=== PATIENT | male | born 1935 | race Caucasian/White ===

== ENCOUNTER 2020-03-19 11:42 | Emergency (ER) | payer MEDICARE ==
[~2020-03-19] VITALS: Ht 167.6 cm; Wt 72.7 kg
[~2020-03-19 11:42] MED LIST: ALLEGRA60 M1 PO; ALTACE2.5 M1 PO; CENTRUM1 TAB PO; CLOPIDOGREL PO; DRISTAN 12-HOUR15 ML NAS; FISH OIL500 MG PO; KEPPRA XR500 MG PO; MIRTAZAPINE7.5 MG PO; MUCINEX 60600 MG/TA1 PO; NAPROXEN220 MG PO; NITROQUICK0.4 MG SL; PLAVIX 75MG TAB75 MG PO; PREPARATION H30 GM RC; REMERON15 MG PO; TOLNAFTATE; TRANSDERM-0.5 MG/21 TD; TRIAMCINOLONE A15 G3 TP; UNABLE; ZANTAC 7575 MG PO; ZANTAC150 MG PO; ZOCOR10 MG PO
[2020-03-19 11:47] VITALS: TEMP 98.1
[2020-03-19] MEDS ORDERED: CEPHALEXIN500 M1 PO (12:08)
[2020-03-19 12:43] VITALS: BP 160/89; PULSE 73
== END 2020-03-19 13:05 | disposition home or self-care (01) ==
LOC: COL.ER 11:42
DX: R04.0 Epistaxis (principal); Z88.8 Allergy status to other drugs, medicaments and biological substances

== ENCOUNTER 2020-05-10 07:50 | Emergency (ER) | payer MEDICARE ==
[~2020-05-10] VITALS: Ht 167.6 cm; Wt 75.0 kg
[~2020-05-10 07:50] MED LIST changes: +CEPHALEXIN500 M1 PO
[2020-05-10 08:06] VITALS: BP 171/97; TEMP 98.9
[2020-05-10] MEDS ORDERED: CEPHALEXIN500 M1 PO (08:19)
[2020-05-10 10:35] VITALS: PULSE 74
== END 2020-05-10 08:53 | disposition home or self-care (01) ==
LOC: COL.ER 07:50
DX: R04.0 Epistaxis (principal); I25.10 Atherosclerotic heart disease of native coronary artery without angina pectoris; R56.9 Unspecified convulsions; Z79.82 Long term (current) use of aspirin; Z79.02 Long term (current) use of antithrombotics/antiplatelets

== ENCOUNTER → 2020-05-17 | Outpatient (CLI) | payer MEDICARE, BC | LOC: COL.CARD 11:20 | DX: Z01.818 Encounter for other preprocedural examination (principal); R04.0 Epistaxis; J34.2 Deviated nasal septum ==

== ENCOUNTER 2022-11-05 19:32 | Emergency (ER) | payer MEDICARE, BC ==
[~2022-11-05] VITALS: Ht 167.6 cm; Wt 72.7 kg
[2022-11-05 20:19] LABS: BASO % 0.3 % (0.0-2.0); EOS # 0.1 K/mm3 (0.0-0.7); EOS % 1.4 % (0.0-4.0); GRAN # 7.4 K/mm3 (1.4-6.5); GRAN % 84.3 % (42.2-75.2); HEMATOCRIT 47.5 % (42.0-52.0); HEMOGLOBIN 15.7 g/dl (13.5-18.0); LYMPH # 0.3 K/mm3 (1.2-3.4); LYMPH % 3.6 % (20.0-51.0); MEAN CELL VOLUME 88 fl (80.0-100.0); MEAN CORPUSCULAR HEMOGLOBIN 29 pg (27-31); MEAN CORPUSCULAR HGB CONC 33 g/dl (33.0-37.0); MEAN PLATELET VOLUME 9.7 fl (7.4-10.4); MONO # 0.9 K/mm3 (0.1-0.6); MONO % 9.7 % (1.7-9.3); PLATELET COUNT 194 K/mm3 (130-400); RED BLOOD COUNT 5.39 M/mm3 (4.20-5.60); REDCELL DISTRIBUTION WIDTH-CV 13.1 % (11.5-14.5)
[2022-11-05 20:23] LABS: COLLECTION METHOD CATHETER
[2022-11-05 20:35] LABS: URINE APPEARANCE Clear (CLEAR/HAZY); URINE BLOOD TRACE-INTACT (NEGATIVE); URINE COLOR Yellow (YELLOW); URINE GLUCOSE Negative (NEGATIVE); URINE KETONE Negative (NEGATIVE); URINE NITRATE Negative (NEGATIVE); URINE PROTEIN(semi-quant) 1+ (NEGATIVE); URINE UROBILINOGEN 0.2 E.U/dL (0.2-1.0)
[2022-11-05 20:39] LABS: ALBUMIN 3.5 gm/dL (3.4-4.8); BILIRUBIN,TOTAL 0.8 mg/dL (0.2-1.2); CALCIUM 9.1 mg/dL (8.4-10.2); CREATININE, serum 1.07 mg/dL (0.72-1.25); POTASSIUM 4.3 mmol/L (3.5-4.5); TOTAL PROTEIN 7.1 gm/dL (6.2-8.1)
[2022-11-05 20:39] LABS: MUCOUS Present (NOT PRESENT); SQUAMOUS EPITHELIAL 0-2 /hpf (0-10); URINE BACTERIA None Seen /hpf (NONE SEEN)
[2022-11-05] MEDS ORDERED: PAXLOVID CO-PA1 EACH PO (21:55)
[2022-11-05 22:18] VITALS: BP 156/87; PULSE 68; TEMP 98.6
== END 2022-11-05 22:18 | disposition home or self-care (01) ==
LOC: COL.ER 19:32
PROVIDERS: Personal Emergency Response Attendant
DX: U07.1 COVID-19 (principal); R09.02 Hypoxemia
CPT/HCPCS: J1100; J7030